=== PATIENT | male | born 1985 | race Caucasian/White ===

== ENCOUNTER 2018-08-30 17:57 | Emergency (ER) | payer BC ==
[~2018-08-30] VITALS: Ht 177.8 cm; Wt 77.2 kg
[2018-08-30] MEDS ORDERED: BICILLIN-LA 2,400,000 UNITS/4 ML IM ONE (18:30)
--- NOTE | 2018-08-30 18:33 | NUR ---
pcn ordered from pharmacy
[2018-08-30 19:13] VITALS: BP_SYST 132
== END 2018-08-30 19:16 | disposition home or self-care (01) ==
LOC: ED 19:10
DX: A51.0 Primary genital syphilis (principal)
CPT/HCPCS: 96372; 99283; J0561